=== PATIENT | male | born 1955 | race Caucasian/White ===

== ENCOUNTER → 2024-07-27 12:43 | Outpatient (CLI) | payer MEDICARE, OTHER, SELFPAY ==
--- NOTE | 2024-07-27 12:46 | DI.MRI.S_ITS ---
PROCEDURE: MR HIP LT WO CON INDICATIONS: pain in left hip TECHNIQUE: Noncontrast coronal T1 spin echo and STIR through the bony pelvis. Coronal and axial T2 fast spin echo with fat saturation, sagittal T1 spin echo, and oblique axial T2 fast spin echo with fat saturation through the hip. COMPARISON: None. FINDINGS: Image quality: Excellent. Bones and joints: Lumbar sacral segmentation anomaly. Marrow signal of the visualized lower lumbar spine is unremarkable. The sacrum is intact. Bilateral sacroiliac joints are unremarkable. Extensive metallic artifact about the right hip, postprocedural and limits evaluation. Flattening of the left superior femoral head with associated marked marrow edema in the left femoral head, extending to the left humeral neck, concerning for underlying avascular necrosis versus subchondral fracture with marked reactive marrow edema. Additional marrow edema of the anterior superior acetabulum, reactive as well. No acute fracture of the left hip. Small left hip effusion. Tendons and ligaments: The left iliopsoas, a adductor, and hamstring tendons unremarkable. The left gluteal minimus and the left gluteal medius tendon unremarkable. Labrum and cartilage: Circumferential labral tear. No paralabral cyst. Soft tissues: Unremarkable IMPRESSION: 1. Flattening of the left superior femoral head with marked associated marrow edema in the left femoral head and neck, concerning for articular surface collapse with underlying avascular necrosis versus subchondral fracture and associated reactive marrow edema. 2. Mild reactive marrow edema in the left anterior acetabulum. Dictated by: Pau Harris M.D. on 07/27/2024 at 15:16 Approved by: Pau Harris M.D. on 07/27/2024 at 15:26
== END ==
PROVIDERS: Family Provider Family Medicine; PCP Internal Medicine; Referring Provider Internal Medicine; Visit Provider Internal Medicine
DX: M25.552 Pain in left hip (principal)
CPT/HCPCS: 73721

== ENCOUNTER → 2024-08-31 12:42 | Outpatient (CLI) | payer MEDICARE, OTHER, SELFPAY ==
--- NOTE | 2024-08-31 13:09 | EKG_ITS ---
[place] [id number] [place] [id number] Test Date: 2024-08-31 Pat Name: Simone Winston Department: [facility] Room: Gender: Male Social Service Agency Director: TAWANNA : 1955 Requested By: Order Number: [id number] Reading MD: Jamel Ferrell MD Measurements Intervals Catherine Rate: 75 P: 65 WY: 158 QRS: -15 QRSD: 84 T: 75 QT: 374 QTc: 417 Interpretive Statements Normal sinus rhythm with sinus arrhythmia Inferior infarct , age undetermined Electronically Signed On 08-31-2024 16:25:33 PST by Jamel Ferrell MD
[2024-08-31 13:14] LABS: Appearance Urine UA CLEAR; Bilirubin Urine UA NEGATIVE (NEGATIVE); Color Urine UA YELLOW; Glucose Urine UA NEGATIVE (Negative); Ketones Urine UA TRACE (NEGATIVE); Leukocyte Esterase Urine UA NEGATIVE (NEGATIVE); Nitrite Urine UA NEGATIVE (Negative); Occult Blood Urine UA NEGATIVE (Negative); Protein Urine UA NEGATIVE (Negative); Specific Gravity Urine UA 1.025 (1.000-1.035); Urobilinogen Urine UA 0.2 E.U./dL (0.2); pH Urine UA 5.5 (4.5-8.0)
[2024-08-31 13:30] LABS: Bacteria Urine Few (2-10); Hyaline Casts Urine 0-1/LPF; RBC Urine 1-5/HPF (0-5/HPF); Squamous Epithelial Cell Urine 1-5 /HPF (0-5/HPF); Urine Volume 10mL (spun); WBC Urine 1-5/HPF (0-5/HPF)
[2024-08-31 13:32] LABS: Culture Indicated Urine Cult Not Indicated
[2024-08-31 14:01] LABS: Add Manual Diff / Slide Review NO; Basophils Absolute Auto 0 /uL (0-100); Basophils Percent Auto 0.2 % (0-2); Eosinophils Absolute Auto 200 /uL (0-450); Eosinophils Percent Auto 3.3 % (2-4); Hematocrit 43.5 % (41-53); Hemoglobin 14.9 g/dL (13.5-17.5); Lymphocytes Absolute Auto 1500 /uL (1100-4500); Lymphocytes Percent Auto 20.5 % (25-40); Mean Corpuscular HGB Conc 34.2 % (30-36); Mean Corpuscular Volume 90.7 fL (80-100); Monocytes Absolute Auto 600 /uL (0-900); Monocytes Percent Auto 8.2 % (3-14); Neutrophils Absolute Auto 4800 /uL (1500-7000); Neutrophils Percent Auto 67.8 % (50-75); Platelet Count 161 X10^3/uL (150-400); Red Blood Cell Count 4.79 X10^6/uL (4.5-5.9); Red Cell Distribution Width 14.5 % (11.6-14.8); White Blood Cell Count 7.1 X10^3/uL (4.5-11.0)
[2024-08-31 14:31] LABS: BUN Creatinine Ratio 21.3 (6-22); Blood Urea Nitrogen 23 mg/dL (9-20); Carbon Dioxide 28 mmol/L (22-32); Chloride 105 mmol/L (98-107); Estimated Glomerular Filt Rate > 60 mL/min (>60); Glucose 111 mg/dL (80-110); HEMOLYSIS < 15 (0-50); Potassium 4.5 mmol/L (3.4-5.1); Sodium 138 mmol/L (137-145)
[2024-08-31 15:47] LABS: Hemoglobin A1C% w Est Avg Glu 5.3 % (4.0-6.0)
== END ==
PROVIDERS: Family Provider Family Medicine; PCP Internal Medicine; Referring Provider Orthopaedic Surgery; Visit Provider Orthopaedic Surgery
DX: Z01.818 Encounter for other preprocedural examination (principal); R73.9 Hyperglycemia, unspecified; Z01.812 Encounter for preprocedural laboratory examination; N39.0 Urinary tract infection, site not specified
CPT/HCPCS: 36415; 80048; 81001; 83036; 85025; 93005; 93010

== ENCOUNTER 2024-09-19 11:28 | Day surgery (SDC) | payer OTHER, SELFPAY ==
[2024-09-07 09:05] VITALS: BMI 29.0
[2024-09-19] VITALS (11 sets, daily range): BP systolic 94–142; BP diastolic 50–78; PULSE 65–103; RESP 11–22; TEMP 35.6–36.6; O2SAT 93–99; BMI 29.0
--- NOTE | 2024-09-19 06:00 | DI.RAD.S_ITS ---
PROCEDURE: XR HIP W PEL IF DONE LT 2V INDICATIONS: RUSSELL TECHNIQUE: AP pelvis and lateral view of the hip acquired. [facility], 09/19/2024, 15:54. FINDINGS: Bones: Patient is status post left hip arthroplasty, with hardware components in expected positions. The hip joint appears congruent. Redemonstration of right hip arthroplasty. The visualized bony structures appear intact. Soft tissues: Overlying postoperative changes are noted. No suspicious soft tissue densities. IMPRESSION: Expected post-operative appearance of a hip arthroplasty. Dictated by: Mahendra Aranda M.D. on 09/21/2024 at 19:56 Approved by: Mahendra Aranda M.D. on 09/21/2024 at 19:56
[2024-09-19] MEDS: LACTATED RINGERS 1,000 ML 42 ML IV ×2 (11:45→15:43)
[2024-09-19] MEDS: ACETAMINOPHEN 325 MG TABLET 975 MG PO (11:46)
[2024-09-19] MEDS: VANCOMYCIN 1,000 MG/200 ML PIGGYBACK 200 MG IV (13:03)
--- NOTE | 2024-09-19 13:11 | SUR.OPER ---
Lateral on padded OR bed. Gel axillary roll. Arms secured on padded armboard with pillow supporting top arm. Padded hip positioner braces x4 - anterior and posterior chest and pelvis. Additional gel pad used anterior pelvis. Gel pad under bottom leg from knee to foot and secured with tape over sheet.
--- NOTE | 2024-09-19 14:17 | PM.PREOP ---
Pre-operative Note Interval Note History & Physical reviewed/Exam performed by Physician: Yes Changes to H&P: No
[2024-09-19] MEDS: CEFAZOLIN 2 GM/100 ML PREMIX 100 ML IV ×2 (14:35→22:19)
[2024-09-19] MEDS: TRANEXAMIC ACID 1,000 MG VIAL 1000 MG INJ ×2 (14:45→16:23)
[2024-09-19] MEDS: BUPIVACAINE 0.25% W/ EPI 30 ML VIAL 60 ML INJ (14:55)
[2024-09-19] MEDS: BUPIVACAINE LIPOSOME 266 MG/20 ML VIAL INJ (14:56)
--- NOTE | 2024-09-19 16:15 | DI.RAD.S_ITS ---
PROCEDURE: XR PELVIS 1-2V INDICATIONS: LEFT TOTAL HIP ARTHROPLASTY TECHNIQUE: 1 view of the lower pelvis acquired. COMPARISON: [facility], , PELVIS 1 OR 2 VIEWS, 08/12/2015, 10:00. FINDINGS: Bones: Patient is status post left hip arthroplasty, with hardware components in expected positions. The hip joint appears congruent. The visualized bony structures appear intact. Stable right hip arthroplasty. Soft tissues: Overlying postoperative changes are noted. No suspicious soft tissue densities. IMPRESSION: Expected post-operative appearance of a hip arthroplasty. Dictated by: Zoe Riley M.D. on 09/19/2024 at 16:47 Approved by: Zoe Riley M.D. on 09/19/2024 at 16:47
--- NOTE | 2024-09-19 16:51 | PM.OP.1 ---
Operative Date/Time/Diagnoses Date of procedure: 09/19/24 Time of procedure: 14:10 Pre-op diagnosis: Left hip OA Post-op diagnosis: same Procedure & Clinicians Procedure: Left total hip arthroplasty posterior approach Same procedure as scheduled: Yes Indications: The patient has had progressively worsening left hip pain with radiographic changes consistent with arthritis. Non-operative management has failed and the patient has requested total hip replacement. The risks, benefits and alternatives to surgery were discussed with the patient prior to proceeding. Risks discussed included, but were not limited to, failure to relieve pain, leg length discrepancy, dislocation, stiffness, infection, nerve damage, deep venous thrombosis, pulmonary embolism, stroke, coma, heart attack, permanent paralysis and , as well as the potential need for eventual revision of the prosthetic. Surgeon: Lexy Louie Clinical Research Spec: Sandra Riley Anesthesia Type: General and Spinal Operative Notes Findings: Severe left hip OA, adequate stability Closure Type: primary Specimen(s): none sent Prosthetic devices, grafts, tissues, transplants, or devices: Louie and nephew 50 mm R3 cup, neutral poly liner,one 6.5 mm screw, 50 x 36 neutral liner, size 10 synergy standard offset, 36 x +0 cobalt chrome Estimated Blood Loss (mL): 250 Blood products transfused: none Procedure in detail: The patient was seen in the pre-operative area, where the patient identified the left hip as the operative site and this was marked with my initials. The patient received pre-operative antibiotics and was taken to the operating room and placed on the operative table in the right lateral decubitus position after satisfactory anesthesia. A second time worker out was performed. The left leg was prepared from the ankle to the iliac crest with ChloroPrep in the usual fashion and draped through sterile drapes. PA was used during the procedure and was essential for intraoperative retraction and safe implantation of components. The hip was approached through an approximately 20 cm incision centered over the left greater trochanter and curving gently posteriorly as it went proximally. This was carried sharply to the fascia oren, which was divided and retracted with a self retaining retractor. The trochanteric bursa was excised with care being taken to avoid the sciatic nerve, which was identified and protected throughout the case. The short external rotators were incised and the capsulomuscular flap was raised and tagged for later repair. The hip was dislocated, and a femoral neck osteotomy performed approximately 15 mm above the lesser trochanter. There was moderate scar and calcific changes in the capsule it looked like it was likely consistent with gout. There was also moderate scarring. Retractors were placed around the femur. The canal was opened with a box cutting osteotome, followed by a T handled reamer and a lateralizing reamer. The canal reamers and broach was then used, followed by sequential broaching until there was good stability of the broach in the femur. Retractors were placed to expose the acetabulum. The labrum and central soft tissues were removed. Reaming was performed initially going up in 2 mm increments, then 1 mm increments until good bite was obtained with an odd sized reamer. The cup 1 mm larger than the last reamer was then inserted using the appropriate anteversion guides. It was further stabilized with a single screw. A trial neutral liner was placed. The broach was placed in the canal. A trial head and neck were then placed and the hip relocated and checked for leg length and stability. An intraoperative film confirmed the component position and no evidence of fracture. The patient was stable in the position of sleep, of squatting, and could be put through a range of motion with 45 degrees internal rotation without dislocation. At 90 degrees flexion, internal rotation to 70? was possible before dislocation. This was felt to be satisfactory and the appropriate components were opened, and the trials were removed. The acetabular liner was impacted into position. The final stem was then impacted into the prepared femoral canal. A brief Betadine soak was performed while trialing with head options. The hip was meticulously irrigated with normal saline. Finally the femoral head was impacted onto the stem. The acetabulum was cleared of all material and the hip relocated one final time. The capsulomuscular flap was then repaired to the greater trochanter though an awl hole using the tag sutures. The short external rotators were repaired with a nonabsorbable suture. The fascia oren was closed with Vicryl. The subcutaneous layer was closed with barbed sutures and surgical glue. An Aquacel Ag dressing was applied and the patient was taken to recovery having tolerated the procedure well. Complications: none Post-operative Condition: stable Disposition: Acute Care Plan for aftercare: The patient will be maintained on a standard total hip replacement protocol with weight bearing as tolerated and posterior hip precautions. The patient will receive Aspirin and sequential compression devices for DVT prophylaxis. The patient will be discharged home when safe for the home environment.
[2024-09-19] MEDS: hydrOXYzine HCL 25 MG TABLET PO (17:30)
[2024-09-19] MEDS: OXYCODONE IR 5 MG TABLET PO ×2 (17:30→17:47)
[2024-09-19] MEDS: HYDROMORPHONE 1 MG INJ IV ×2 (17:32→17:50)
[2024-09-19] MEDS: LACTATED RINGERS 1,000 ML 100 ML IV (19:05)
[2024-09-19] MEDS: ASPIRIN EC 81 MG TABLET PO (21:04)
[2024-09-19] MEDS: ATORVASTATIN 20 MG TABLET PO (21:04)
[2024-09-19] MEDS: DOCUSATE 100 MG CAPSULE PO (21:04)
[2024-09-19] MEDS: ACETAMINOPHEN 325 MG TABLET 650 MG PO (22:19)
[2024-09-20] MEDS: ACETAMINOPHEN 325 MG TABLET 650 MG PO ×2 (04:11→11:06)
[2024-09-20 05:09] LABS: Hematocrit 38.1 % (41-53); Hemoglobin 12.8 g/dL (13.5-17.5)
[2024-09-20] MEDS: CEFAZOLIN 2 GM/100 ML PREMIX 100 ML IV (06:15)
[2024-09-20] MEDS: IBUPROFEN 400 MG TABLET PO (06:29)
--- NOTE | 2024-09-20 06:30 | PM.DS.1 ---
History of Present Illness History of Present Illness Date Patient Seen: 09/20/24 Time Patient Seen: 06:30 Chief complaint: Left RUSSELL *OPB* Narrative: Operative Date/Time/Diagnoses Date of procedure: 09/19/24 Time of procedure: 14:10 Pre-op diagnosis: Left hip OA Post-op diagnosis: same Procedure & Clinicians Procedure: Left total hip arthroplasty posterior approach Same procedure as scheduled: Yes Indications: The patient has had progressively worsening left hip pain with radiographic changes consistent with arthritis. Non-operative management has failed and the patient has requested total hip replacement. The risks, benefits and alternatives to surgery were discussed with the patient prior to proceeding. Risks discussed included, but were not limited to, failure to relieve pain, leg length discrepancy, dislocation, stiffness, infection, nerve damage, deep venous thrombosis, pulmonary embolism, stroke, coma, heart attack, permanent paralysis and , as well as the potential need for eventual revision of the prosthetic. Surgeon: Lexy Louie Knife Machine Operator: Sandra Riley Anesthesia Type: General and Spinal Operative Notes Findings: Severe left hip OA, adequate stability Closure Type: primary Specimen(s): none sent Prosthetic devices, grafts, tissues, transplants, or devices: Louie and nephew 50 mm R3 cup, neutral poly liner,one 6.5 mm screw, 50 x 36 neutral liner, size 10 synergy standard offset, 36 x +0 cobalt chrome Estimated Blood Loss (mL): 250 Blood products transfused: none Discharge Providers Provider Discharge Date: 09/20/24 Primary care physician: Emmett Arambula MD Consults: 09/19/24 06:00 Consult to Anesthesiology Routine Comment: Consulting Provider: Anesthesiologist Reason for consultation: Regional block for post operative pain control Has provider been notified: No 09/19/24 18:20 Consult to Anesthesiology Routine Comment: Consulting Provider: Anesthesiologist Reason for consultation: Regional block for post operative pain control Consult to Discharge Planning Routine Comment: Consult to Occupational Therapy Evaluate & Treat Comment: Physician Instructions: Evaluate and treat Consult to Physical Therapy Evaluate & Treat Comment: Physician Instructions: post op RUSSELL protocol Discharge provider: Angie Holley PA-C Summary Hospital Course Discharge Diagnosis: left hip osteoarthritis, s/p left total hip arthroplasty Hospital Course: Mr Winston's hospital course was unremarkable. On the morning of POD# 1, he was feeling well and wanted to go home. He was eating and voiding without difficulty and his pain was well-controlled with oral medication. He had not yet been evaluated by PT but had been OOB. Exam Vital Signs (past 8 hours): Oxygen Delivery Method Room Air Oxygen Flow Rate 0 Narrative Exam Narrative: 5/5 strength in hip flexors, quadriceps, hamstrings, DF, PF, EHL on left. Sensation to light touch intact throughout LLE, calf soft and compressible. Aquacel dressing CDI. Objective Labs 09/20/24 04:47 Labs: Laboratory Results - last 24 hr 09/20/24 04:47 Hgb 12.8 L Hct 38.1 L PFSH Medical History (Updated 09/07/24 @ 10:27 by Elly Victor, RN) Raynaud disease HLD (hyperlipidemia) HTN (hypertension) Surgical History History of appendectomy History of right hip replacement (2014) Social History household members: spouse Smoking Status: Never smoker alcohol intake: current Discharge Assessment & Plan Assessment and Plan Assessment: left hip osteoarthritis, s/p left total hip arthroplasty Plan of Treatment: Discharge home after PT. Pt has postop meds. Outpt PT, ASA BID for VTE prophylaxis, multimodal pain control, f/u in office as scheduled. Discharge Plan Discharge Plan Patient Disposition: Home Provider Discharge Comment: Increase aspirin to twice a day for six weeks after surgery. Discharge orders & Medications Discharge Orders: Discharge (Order); Ordered 09/20/24 Ordered By: Angie Holley Prescriptions: Continued amlodipine 2.5 mg Tablet 2.5 mg PO QPM atorvastatin 20 mg Tablet 20 mg PO QPM losartan-hydrochlorothiazide 100-12.5 mg Tablet 1 tab PO QPM aspirin 81 mg Capsule 81 mg PO QPM Follow up/Referrals: Dereje Alston PA-C [Advanced Civil Attorney] - 09/29/24 2:30 pm (Appt:09/29 @ 2:30 with Vanessa VELOZ @ [facility] [place] [facility] ) Emmett Arambula MD [Primary Care Provider] - Diet/Activity/Treatments Diet: Diet as Tolerated Activity: Weightbearing as tolerated. Posterior hip precautions. Cold/Heat Therapy: Ice to hip as needed for pain. Skin/Wound/Dressing Care Report to your healthcare provider any signs of infection, such as:: chills, fever, night sweats, unusual drainage and unusual redness Dressing: May shower. Leave dressing in place until follow up in office. No bathing or otherwise soaking incision. Call the office if the dressing becomes saturated inside. Visit Report/Discharge Packet Instructions: DI for Hip Replacement, DI for Prescription Opioid Use Stand Alone Forms: Patient Portal/API, Surgery Discharge Discharge Data Primary Care Provider: Emmett Arambula Attending Provider: Lexy Louie VTE Deep Vein Thrombosis/Pulmonary Embolism Present on Admission: No
[2024-09-20 08:00] VITALS: BP 135/88; PULSE 89; RESP 18; TEMP 36.4; O2SAT 98
[2024-09-20] MEDS: ASPIRIN EC 81 MG TABLET PO (08:17)
[2024-09-20] MEDS: DOCUSATE 100 MG CAPSULE PO (08:17)
--- NOTE | 2024-09-20 10:20 | OT.IP.EVAL ---
Current Diagnoses Unilateral primary osteoarthritis, left hip (09/19/24) Surgery Performed Operation Date: 09/19/24 13:45 Actual Procedures p Total Hip Arthroplasty(Left) - Lexy Louie MD Past Medical History (Last Updated 09/07/24 @ 10:27 by Elly Victor, YOLI) HLD (hyperlipidemia) HTN (hypertension) Raynaud disease Surgical History (Last Reviewed 09/19/24 @ 11:46 by Barbra Wolff, YOLI) History of appendectomy History of right hip replacement (2014) Occupational Therapy Inpatient Evaluation/Re-Eval M1 PT/OT-IP Prior Functional Status Start: 09/20/24 12:03 Freq: NEEDED Status: Active Protocol: Document 09/20/24 10:20 [facility] (Rec: 09/20/24 12:35 [facility] [id number]) Medical Review Prior Functional Status Medical History Reviewed Yes Communication I Mobility and Gait Per pt use of SPC at times. Activities of Daily Living and IADL's Able to do but had pain with ADL and IADL needs. Social History Household Members spouse Living Arrangements House Number of Floors (Floors) One Floor Number of Stairs To Enter/Railing? One step to enter and no rails . Home Environment Walk in Shower,Tub/Shower Home Equipment Front Wheel Walker,Four Wheel Walker,Straight Cane,Raised Toilet Seat Without Armrests, Long Handled Shoe Horn,Senior Telecommunications Consultant ,Sock Aid,Grab Bars Near Toilet,Grab Bars In Shower M2 OT-IP Current Condition Start: 09/20/24 12:03 Freq: Status: Active Protocol: Document 09/20/24 10:20 [facility] (Rec: 09/20/24 12:35 [facility] [id number]) Occupational Therapy Current Condition Current Condition Evaluation Date 09/20/24 Treatment Diagnosis S/P L RUSSELL Posterior Diagnosis Onset Date 09/19/24 Post Operative Precautions Posterior Hip Precautions No Hip Flexion > 90 degrees,No Hip Internal Rotation,No Hip Adduction M3 OT- IP Subjective and Pain Start: 09/20/24 12:03 Freq: Status: Active Protocol: Document 09/20/24 10:20 [facility] (Rec: 09/20/24 12:35 [facility] [id number]) OT- Subjective Occupational Therapy Visit Type Type Initial Evaluation Visit Start Time 09:35 Visit Stop Time 10:20 Occupational Therapy Visit Comments Patient Comments Pt agreed to get up and get dressed. Patient/Caregiver Goals TO go home. OT Pain Assessment Pain When Pain Assessed At Rest Pain Present Pain Present Pain Reported Location left hip Intensity 2 M4 OT- IP ADL's Start: 09/20/24 12:03 Freq: Status: Active Protocol: Document 09/20/24 10:20 [facility] (Rec: 09/20/24 12:35 [facility] [id number]) OT DDI-Ucns-[id number] General Evaluation Self-Feeding Ability Independent OT ADL-Grooming General Evaluation Grooming Ability Standby Assistance Comments OT Grooming Comments WHile standing with FWW in front of the sink. OT ADL-Oral Care General Eval Oral Care Ability Independent OT ADL-Dressing General Eval Upper Body Dressing Ability Independent Lower Body Dressing Ability Contact Guard Assistance Areas Needing Assistance Underpants/Brief Comments OT Dressing Comments Pt able to use LB dressing equipment for dressing needs after cues to use it so able to follow his hip precautions. OT ADL-Toileting General Evaluation Toileting Ability Standby Assistance Comments OT Toileting Comments Pt able to use the toilet with distant SBA. Educated best to stand and wipe after a BM. Suggested pt to take the urinal home. OT ADL-Bathing Comments OT Bathing Comments Pt states his to assist as needed , suggested best to get a shower chair for safety. - pt states does not need it. Educated of care of bandage while showering. M5 OT- IP IADL's Start: 09/20/24 12:03 Freq: Status: Active Protocol: Document 09/20/24 10:20 [facility] (Rec: 09/20/24 12:35 [facility] [id number]) OT-Instrumental Activities of Daily Living Home Safety Awareness Awareness of Need for Assistance at Home Good Awareness Ability to Problem Solve Emergency Able to Problem Solve Situations Medication Management Medication Management No Deficits Identified Money Management Money Management No Deficits Identified Meal Preparation Meal Preparation Caregiver Provides Assist Rn On Site Rn On Site Caregiver Provides Assist M6 OT- IP Functional Cognition Start: 09/20/24 12:03 Freq: Status: Active Protocol: Document 09/20/24 10:20 [facility] (Rec: 09/20/24 12:35 [facility] [id number]) Cognitive Factors Limiting Selfcare Function Cognitive Ability Level of Alertness Alert Patient Orientation Name,Age,Birthday,Month,Date, Year,Day of Week,Place, Situation Attention Span Ability Capable of Focused Attention, Capable of Sustained Attention Ability to Follow Commands Able to Follow Multi-Step Commands Memory Description No Deficits Noted Safety Awareness Decreased Ability to Apply Precautions,Underestimates Need for Assistance Cognitive Comments Cognitive Assessment Comments Pt a little insistent of his care and needing vc to follow his hip precautions. OT- Vision and Hearing OT- Hearing Assessment OT- Hearing Assessment Hearing Impaired,Use of Hearing Aids OT- Vision Assessment Visual Acuity Glasses All The Time Visual Attentiveness WFL Occular Pursuits WFL M7 OT- IP Mobility and Balance Start: 09/20/24 12:03 Freq: Status: Active Protocol: Document 09/20/24 10:20 [facility] (Rec: 09/20/24 12:35 [facility] [id number]) OT- Bed Mobility Assessment Supine to Sit Supine to Sit Assist Minimal Assistance Sit to Supine Sit to Supine Assist Standby Assistance OT-Transfer Assessment Sit to and From Stand Sit to and from Stand Standby Assistance Transfers Transfer Ability Standby Assistance Technique Transfer Destination Bed,Toilet Devices Transfer Assistive Devices Gait Belt,Front Wheeled Walker Comments Mobility Comments Assist to help with his LLE for bed mobility needs. VC to push surfaces to stand to the FWW with SBA. Pt SBA while in the room and reminders to keep the FWW in front of him. OT- Balance Assessment Sitting Balance and Reactions Static Sitting Balance Ability Normal Dynamic Sitting Balance Ability Normal Standing Balance and Reactions Static Standing Balance Ability Good Dynamic Standing Balance Ability Good M8 OT- IP Objective Assessments Start: 09/20/24 12:03 Freq: Status: Active Protocol: Document 09/20/24 10:20 [facility] (Rec: 09/20/24 12:35 [facility] [id number]) OT Gross Range of Motion Upper Extremity Range of Motion ROM Impairments WFL for needs. OT Strength Upper Extremity Strength Assessment Within Functional Limits M9 OT- IP Assessment and Plan Start: 09/20/24 12:03 Freq: Status: Active Protocol: Document 09/20/24 10:20 [facility] (Rec: 09/20/24 12:35 [facility] [id number]) OT Summary Assessment and Plan Potential Rehabilitation Potential Excellent Analytic Complexity at Evaluation Low Summary OT Impairments Pain,Strength,Balance, Functional Mobility,Bathing, Shower Transfers Progress Towards Goals Progressing Toward Goals Assessment Summary Pt low complexity and man barriers are step, needing cues for safety and to follow his hip precautions for ADL and mobility needs. Pt to go home with family to assist and go to outpt PT. Goals Dressing Goal Independent,Long Handled Shoe Horn,Senior Telecommunications Consultant,Sock Aid Toileting Goal Independent Bathing Goal Independent Toilet Transfer Goal Independent Shower Transfer Goal Independent Days to Meet Goals 3 Frequency of Treatment Frequency Of Treatment Once a Day Treatment Plan OT Treatment Plan ADL Training,Functional Mobility,Patient/Family Education,Discharge Planning Discharge Recommendations OT Discharge Recommendations Home with Assistance, Outpatient PT Home Equipment Needs Pt would benefit from a shower chair and [facility] Transportation Needs at Discharge Private Vehicle
--- NOTE | 2024-09-20 10:50 | PT.IIE ---
Current Diagnoses Unilateral primary osteoarthritis, left hip (09/19/24) Surgery Performed Operation Date: 09/19/24 13:45 Actual Procedures p Total Hip Arthroplasty(Left) - Lexy Louie MD Surgical History (Last Reviewed 09/19/24 @ 11:46 by Barbra Wolff, YOLI) History of appendectomy History of right hip replacement (2014) Medical History (Last Updated 09/07/24 @ 10:27 by Elly Victor, YOLI) HLD (hyperlipidemia) HTN (hypertension) Raynaud disease Physical Therapy Inpatient Evaluation/Re-Eval M1 PT/OT-IP Prior Functional Status Start: 09/20/24 12:51 Freq: NEEDED Status: Active Protocol: Document 09/20/24 10:50 AB (Rec: 09/20/24 13:06 AB [id number]) Medical Review Prior Functional Status Medical History Reviewed Yes Communication able to make needs known Mobility and Gait pt stated that he was independent with all mobilities and ambulation without AD but occasionally uses a SPC; stated that for the last month, has been using a SPC more consistently due to hip pain Activities of Daily Living and IADL's per OT note: Able to do but had pain with ADL and IADL needs. Social History Household Members spouse Living Arrangements House Number of Floors (Floors) One Floor Number of Stairs To Enter/Railing? 1 step to enter Home Environment Walk in Shower,Tub/Shower Home Equipment Front Wheel Walker,Straight Cane,Raised Toilet Seat Without Armrests,Hand Held Shower,Grab Bars Near Toilet, Grab Bars In Shower M2 PT-IP Current Condition Start: 09/20/24 12:51 Freq: NEEDED Status: Active Protocol: Document 09/20/24 10:50 AB (Rec: 09/20/24 13:06 AB [id number]) Physical Therapy Current Condition Current Condition Evaluation Date 09/20/24 Treatment Diagnosis s/p L RUSSELL posterior; difficulty in walking Onset Date 09/19/24 M3 PT-IP Subjective Start: 09/20/24 12:51 Freq: NEEDED Status: Active Protocol: Document 09/20/24 10:50 AB (Rec: 09/20/24 13:06 AB [id number]) Subjective Physical Therapy Visit Type Type Initial Evaluation Visit Start Time 10:50 Visit Stop Time 11:25 Number of COAL CUTTER Visits 0 Physical Therapy Visit Comments Patient Comments agreeable to do PT Therapy Pain Assessment Pain When Pain Assessed At Rest Pain Present Pain Present Pain Reported Location left hip Intensity 2 Scale Used Numeric (0 - 10) Pain Management Techniques Apply Cold,Distraction, Modification of Treatment,Re- positioning,Timing of Activity with Medications M4 PT-IP Mobility and Gait Start: 09/20/24 12:51 Freq: NEEDED Status: Active Protocol: Document 09/20/24 10:50 AB (Rec: 09/20/24 13:06 AB [id number]) PT-Bed Mobility Assessment Supine to Sit Supine to Sit Standby Assistance Sit to Supine Sit to Supine Standby Assistance PT-Transfer Assessment Sit to and From Stand Sit to and from Stand Contact Guard Assistance,1 Person Assistance,Use of Upper Extremities Equipment Transfer Assistive Device Gait Belt,Front Wheeled Walker Orthotic/Prosthetic Devices or Brace: No Transfers Transfer Destination Bed,Chair Transfer Technique ambulated Transfer Ability Level of Assist Contact Guard Assistance,1 Person Assistance,Use of Upper Extremities Comments Mobility Comments pt sitting on the chair. spouse and son in room. spouse will the the main person assisting pt. educated pt and family regarding L hip posterior precautions. informed pt and family regarding doing caregiver training. spouse stated that she knows what to do and pt had previous hip sx. pt completed sit to stand from the chair CGA. cued for hip precautions. instructed pt to sit back down on chair. educated again on hip precautions and LLE position when doing sit<>stand. completed sit to stand again CGA. pt ambulated to EOB ~ 12 ft CGA. completed sit<>supine SBA. cued for techniques. pt agreed to do stairs. asked family on who will assist pt with stairs and son stepped in . educated son on how to assist pt with stairs. son assisted pt with sit to stand and ambulated pt towards the platform step. pt completed up/down step using FWW min A and cues. pt completed 2 sets . pt ambulated back to the room using FWW ~ 30 ft CGA. pt sat back on chair. educated pt and family regarding safety and use of safety belt. spouse stated that she knows how to use safety belt and how to assist pt. spouse not interested in any caregiver training. positioned pt on the chair. call light and table placed within reach. Gait Assessment Gait Gait Assistance Required: Contact Guard Assist Distance (Feet) 30 Able to Maintain Weight Bearing Status Yes During Gait Assistive Devices Assistive Device Gait Belt,Front Wheeled Walker Orthotic/Prosthetic Devices or Brace: No Gait Deviations General Gait Pattern Decreased Stride Length Factors Limiting Gait Function Factors Limiting Gait Function Decreased Activity Tolerance, Decreased Strength,Limited Range of Motion,Pain,Poor Balance,Poor Safety Awareness Stair Climbing Assessment Evaluation Level of Assist On Stairs Minimal Assistance Devices Stair Climbing Assistive Devices Front Wheel Walker Technique/Endurance Stair Climbing Direction Ascend and Descend Stair Climbing Technique Step to Step Number of Steps Climbed 1 Query Text: Stair Climbing Set # Repetitions (reps) 2 PT-Balance Assessment Sitting Balance and Reactions Static Sitting Balance Ability Normal Dynamic Sitting Balance Ability Normal Standing Balance and Reactions Static Standing Balance Ability Good Dynamic Standing Balance Ability Fair Device Used FWW M5 PT-IP Objective Assessments Start: 09/20/24 12:51 Freq: NEEDED Status: Active Protocol: Document 09/20/24 10:50 AB (Rec: 09/20/24 13:06 AB [id number]) Orientation Orientation/Cognition Level of Alertness Alert Orientation Name,Situation Language Function Ability No Deficits Noted Safety Awareness Understands Safety Issues Memory Description No Deficits Noted Gross Range of Motion Lower Extremity ROM Assessment Within Functional Limits Strength Lower Extremity Strength Assessment Left Impaired Hip 3-/5 Knee 4-/5 Coordination Assessment Gross Coordination Gross Coordination WNL Muscle Tone Muscle Tone WNL Yes M6 PT-IP Treatment Start: 09/20/24 12:51 Freq: NEEDED Status: Active Protocol: Document 09/20/24 10:50 AB (Rec: 09/20/24 13:06 AB [id number]) Physical Therapy Treatment Education Education Provided Precautions,Weight Bearing Status,Safety M7 PT-IP Assessment and Plan Start: 09/20/24 12:51 Freq: NEEDED Status: Active Protocol: Document 09/20/24 10:50 AB (Rec: 09/20/24 13:06 AB [id number]) PT Summary Assessment and Plan Potential Rehabilitation Potential Fair Status of Condition at Evaluation Stable Summary Impairments Pain,ROM,Strength,Balance, Coordination,Sensation,Tone, Cognition,Bed Mobility, Transfers,Gait,Activity Tolerance Assessment Summary pt is a 69 y/o M s/p L RUSSELL posterior approach POD 1. pt has L hip posterior precautions and is WBAT. pt requiring SBA for bed mobility , CGA for transfers and ambulation using FWW and min A for stair climbing. educated pt and family regarding safety and precautions. Spouse not interested in doing caregiver training and stated that she knows how to assist pt. completed some training with pt's son and son was able to assist pt with mobility. pt plans to go home today. pt has outpt PT set up. Goals Bed Mobility Goal Independent Transfer Goal Independent,Front Wheeled Walker Gait Goal Independent,Front Wheel Walker Gait Distance 250 Other Goals up/down 1 step using FWW SBA Days to Meet Goals 5 Frequency of Treatment Frequency Of Treatment Twice a Day Treatment Plan Physical Therapy Treatment Plan Bed Mobility Training,Transfer Training,Gait Training, Therapeutic Exercise,Balance Retraining,Post Op Education, Discharge Planning,Hot or Cold Pack,Neuromuscular Re-ed, Coordination Retraining,Manual Therapy Precautions Posterior Hip Precautions No Hip Flexion > 90 degrees,No Hip Internal Rotation,No Hip Adduction Weight Bearing Status Weight Bearing Status Weight Bear as Tolerated Allowed Weight Bearing Amount (enter % LLE WBAT or #) (%) Recommendations To Nursing Amount of Assist Needed 1 Person Assist Discharge Recommendations PT Discharge Recommendations Home with Assistance, Outpatient PT Transportation Needs at Discharge Private Vehicle
--- NOTE | 2024-09-20 11:27 | CM.DANOTE ---
DCP Assessment Note pt is a 69yo M POD1 left total hip with Dr. Louie [facility]CP [facility] COOKY PACKER reviewed EMR. per chart, dc orders in. Per RN report, pt doing well with pain and was OOB with nursing successfully. Voided independently. Eager to dc home. PT/OT pending. COOKY PACKER entered room and introduced self and role. Pt resting in chair. Lives in [place] with spouse Carley. Has a walker/cane/grabbers for home. Denies any CM/DCP needs at this time. Spouse on her way to transport home. P: dc home with spouse support and OP f/u. no identified barriers to safe dc home at this time. CM team will continue to follow as needed YUNIER Garg Discharge Planning/Care Management CM Discharge Assessment Start: 09/20/24 11:26 Freq: Status: Active Protocol: Document 09/20/24 11:26 SL (Rec: 09/20/24 11:27 SL [id number]) Discharge Planning Assessment Assigned Core Driller Helper YUNIER Neri DPOA/Assigned Designee Name charito Howe Contact Information [phone] Advance Directives? No History Provided By Patient Prior Living Arrangements House Household Members spouse Type of transporation used prior to Drives own vehicle admit Independent with ADL's Yes Is patient alert and oriented? Yes DME Already Rented / Owned FWW / Walker,Cane,Other Comment grab bars Barriers to Discharge No Discharge Plan Home Transportation Arrangement spouse in POV Referrals Initiated None needed Review Status In Process Please Provide Date Initial DC 09/20/24 Assessment Was Performed Next Review Type Continued Stay Review Pre-Anesthesia Assessment Start: 09/07/24 09:05 Freq: Status: Complete Protocol: Document 09/07/24 09:05 LB (Rec: 09/07/24 09:11 LB [id number]) Pre-Anesthesia Assessment PAC Comment 09/07/24 Phone assessment. Preop surgery appt 09/11/24. Patient Information Reviewed Via Phone Assessment Assessment Completed With Patient Diagnostic Results BMP/CMP,CBC,EKG,Urinalysis Comment 08/31/24 at . Primary Care Provider Emmett Arambula Seen Specialist in Last 12 Months Yes Specialist Seen Orthopedist Primary Language Central African Preferred Language Central African Multi Site Leasing Consultant Required No Height 170.18 cm Weight 83.915 kg Body Mass Index (BMI) 29.0 Hearing Ability Use of Hearing Aid Visual Assist Glasses Dentition Type Teeth, Natural Present Barriers to Learning None Other Aids No Hx Anesthesia Reactions No Hx Family Anesthesia Reaction No Hx Malignant Hyperthermia No Hx Blood Transfusions No Anesthesia Review Requested No Director Of Financial Reporting No alcohol intake current alcohol intake frequency 1-2 drinks per day Smoking Status Never smoker Substance Use Type [#R] does not use Pain Present Pain Reported Comment Left hip. Musculoskeletal Symptoms Difficulty Walking,Joint Pain, Radiating Pain into Limb History of Falling (Recent or History of Yes ) Comment 2015. Patient is completely paralyzed or No completely immobile Prosthesis or Orthotic Device Cane Mental Status Oriented to own ability Comment Will bring walker. Is patient on oxygen? No Does patient have KOO/SOB No Hx Sleep Apnea No Currently Taking a Beta Landon No Can You Climb a Flight of Stairs Without No SOB Hx Chest Pain No Hx SOB No Hx Syncope or Dizziness No Anti-Coagulant Therapy Yes: Aspirin 81mg daily - will check with surgeon at preop appt when to hold. Has a Resource Agent No Cardiac Testing No Hx Pacemaker/ICD No Cardiac Clearance Received Not Applicable Dysphagia No Gastrointestinal Symptoms None Bladder Pattern Nocturia Urinary Catheter Present No Hx Urinary Self Catheterization No Diabetes No HgbA1C 5.3 Date 08/31/24 Comment A1c 5.3 08/31/24 Hx Drug Resistant Organism No Presence of External or Internal Medical Yes: Right hip. Devices Have you had any close contact with No someone diagnosed with COVID-19? Are you experiencing any of these No symptoms symptoms? Comment Denies covid last 2 months. Marital Status Lives With spouse Current Living Arrangements House Number of Floors (Floors) One Floor Number of Stairs To Enter/Railing? 1 step without railing to enter. Support System Spouse Does the Patient Have Assistance After Yes Surgery Patient Discharge Plan Description Return Home Feels Safe in Current Environment Yes Do you have a plan to hurt yourself or No Plan others? Emergency Contact Name Carley Winston - Emergency Contact Advance Directives? No PAC Instructions Assistance for 24 hours post- op,Durable medical equipment, Medications to take/avoid, Nasal antibiotic,No ETOH/ petroleum product on skin DOS, NPO,Post-op transportation,Pre -surgical wash,Sensory aids, Sturdy shoes/comfortable clothes,Do not bring valuables and remove jewelry
--- NOTE | 2024-09-20 11:40 | PC.NURSE ---
Pt is dressed and ready for discharge home with family. IV has been removed. Discharge instructions reviewed with Pt-discussed d/c meds, time of last dose, reviewed stroke education, s/s of infection, showering, hip precautions, and follow up appointment. Pt denied further questions and was taken out via w/c by RN to POV with Spouse and all belongings.
== END 2024-09-20 11:45 | disposition home or self-care (01) ==
LOC: OR 11:29 → AC 14:15
PROVIDERS: Family Provider Family Medicine; PCP Internal Medicine; Referring Provider Orthopaedic Surgery; Visit Provider Orthopaedic Surgery
PROC: 0SRB0JZ Replacement of Left Hip Joint with Synthetic Substitute, Open Approach (ICD-10-PCS; CPT 27130; principal; 2024-09-19 13:45)
DX: M16.12 Unilateral primary osteoarthritis, left hip (principal); I10 Essential (primary) hypertension; E78.5 Hyperlipidemia, unspecified; E66.9 Obesity, unspecified; Z68.32 Body mass index [BMI] 32.0-32.9, adult; Z96.641 Presence of right artificial hip joint
CPT/HCPCS: 27130; 36415; 72170; 73502; 85014; 85018; 97161; 97165; 97530; 97535; C1776; A9270; C1713; J0666; J0690; J1171; J2250; J2405; J2704